=== PATIENT | male | born 2005 | race Hispanic/Latino ===

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

== ENCOUNTER 2025-02-16 06:15 | Emergency (ER) | payer OTHER, SELFPAY ==
[2025-02-16 07:39] LABS: #Basophils 0.04 10x3/uL (0.0-0.2); #Eosinophils 0.11 10x3/uL (0.0-0.7); #Monocytes 0.59 10x3/uL (0.11-0.59); #Neutrophils 2.45 10x3/uL (1.40-6.50); %Basophils 0.7 % (0.0-1.0); %Eosinophils 2.0 % (0.0-10.0); %Lymphocytes 42.7 % (21.0-51.0); %Monocytes 10.6 % (0.0-10.0); %Neutrophils 43.8 % (42.0-75.0); Hematocrit 44.4 % (42.0-52.0); Hemoglobin 14.7 g/dL (14.0-18.0); Mean Corpuscular Hemoglobin 28.3 pg (27.0-31.0); Mean Corpuscular Volume 85.4 fL (78.0-98.0); Platelet Count 289 10x3/uL (130-400); Red Blood Cell (RBC) Count 5.20 mill/uL (4.70-6.10); White Blood Cell (WBC) Count 5.58 10x3/uL (4.8-10.8)
[2025-02-16 07:59] LABS: ALT (SGPT) 18 U/L (Less than 45); AST (SGOT) 28 U/L (11-34); Albumin 4.3 g/dL (3.1-4.5); Alkaline Phosphatase 56 U/L (40-110); Anion Gap 8 mmol/L (10-20); BUN (Urea Nitrogen) 17 mg/dL (8.9-20.6); Bilirubin, Total 0.5 mg/dL (0.3-1.2); Calc. Creatinine Clearance 0 mL/min (70-130); Calcium 9.2 mg/dL (7.8-10.44); Carbon Dioxide 23 mmol/L (22-29); Chloride 106 mmol/L (98-107); Globulin 2.5 g/dL (2.4-3.5); Glucose 93 mg/dL (70-105); Potassium 3.8 mmol/L (3.5-5.1); Sodium 133 mmol/L (136-145)
== END 2025-02-16 08:38 | disposition home or self-care (01) ==
LOC: ERS 06:15
DX: S29.011A Strain of muscle and tendon of front wall of thorax, initial encounter (principal); F17.290 Nicotine dependence, other tobacco product, uncomplicated; X50.0XXA Overexertion from strenuous movement or load, initial encounter; Y99.0 Civilian activity done for income or pay
CPT/HCPCS: 71045; 80053; 84484; 85025; 93005